=== PATIENT | male | born 1995 | race Asian ===

== ENCOUNTER 2019-06-01 18:29 | Emergency (ER) | payer BC ==
[2019-06-01 18:55] VITALS: BP 102/57
--- NOTE | 2019-06-01 19:35 | UC ---
Skin Complaint HPI - HPI Summary HPI Summary: Patient is a 23yo male presenting with left middle finger redness and pain x1 week. Patient states he cut his finger with a knife while cutting food. After he cut it, he washed it at home and thought it would heal on its own. He notes that afte he cut his finger, he went fishing and did not cover the wound. He does not know when his last tetanus booster was and would like one today. Patient describes the pain as 2/10. Touching the finger makes the pain worse. He does not believe there is a foreign body in the wound. He denies fever, chills, muscle aches, n/v/d. - History of Current Complaint Chief Complaint: UCSkin Time Seen by Provider: 06/01/19 19:11 Stated Complaint: WOUND RECHECK Hx Obtained From: Patient Onset/Duration: Gradual Onset Timing: Constant Onset Severity: Mild Current Severity: Mild Pain Intensity: 2 Pain Scale Used: 0-10 Numeric Location: Discrete, Other - left middle finger distal phalanx - Allergy/Home Medications Allergies/Adverse Reactions: Allergies Allergy/AdvReac Type Severity Reaction Status Date / Time No Known Allergies Allergy Verified 06/01/19 18:51 PMH/Surg Hx/FS Hx/Imm Hx - Surgical History Surgical History: None - Family History Known Family History: Positive: Diabetes, Non-Contributory - Social History Alcohol Use: Occasionally Substance Use Type: None Smoking Status (MU): Never Smoked Tobacco Review of Systems All Other Systems Reviewed And Are Negative: No Constitutional: Positive: Negative. Negative: Fever, Chills, Fatigue Skin: Positive: Other - redness of left middle distal phalanx Gastrointestinal: Negative: Abdominal Pain, Vomiting, Diarrhea, Nausea Motor: Negative: Decreased ROM Neurovascular: Negative: Decreased Sensation, Decreased Pulses Musculoskeletal: Positive: Edema - patient complains of mild swelling. Negative : Decreased ROM Neurological: Negative: Paresthesia, Numbness Physical Exam Triage Information Reviewed: Yes Appearance: Well-Appearing, No Pain Distress, Well-Nourished Vital Signs: Initial Vital Signs Temp 99.0 F 06/01/19 18:52 Pulse 66 06/01/19 18:52 Resp 18 06/01/19 18:52 BP 102/57 06/01/19 18:52 Pulse Ox 99 06/01/19 18:52 Vital Signs Reviewed: Yes Cardiovascular: Positive: Pulses Normal, Brisk Capillary Refill Musculoskeletal: Positive: Strength Intact, ROM Intact, Edema @ - minimal edema of distal phalanx of left middle finger, Other: - tenderness to palpation of tip of left middle finger Neurological: Positive: Other: - sensation of left middle finger intact Skin: Positive: Other - small pustule approximately 0.5cm surrounded by mild erythema noted on palmar surface of left middle distal phalanx. small amount of pus expressed when pressure was applied to finger. did not continue to pus or bleed. Course/Dx - Course Course Of Treatment: Discussed with patient that he is to take keflex as directed for treatment of cellulitis. Patient agreed to tetanus booster as well. Patient instructed to keep finger clean and dry. He may take OTC pain medication as directed for relief of pain. He was instructed to return or go to the emergency room if symptoms persist or worsen. Patient voiced understanding and agreed to treatment plan. - Diagnoses Provider Diagnosis: Cellulitis and abscess of finger, unspecified Discharge ED - Sign-Out/Discharge Documenting (check all that apply): Patient Departure All imaging exams completed and their final reports reviewed: No Studies - Discharge Plan Condition: Stable Disposition: HOME Prescriptions: Cephalexin CAP* [Keflex CAP*] 500 mg PO TID 7 Days #21 cap Patient Education Materials: Cellulitis (ED) Referrals: No Primary Care Phys,NOPCP [Primary Care Provider] - Additional Instructions: Take keflex as directed for treatment of the skin infection on your finger. Keep finger clean and dry. You may take over the counter pain medication as directed for relief of pain. Return or go to the emergency room if symptoms persist or worsen. - Billing Disposition and Condition Condition: STABLE Disposition: Home
[2019-06-01] MEDS ORDERED: Tetan/Diph/Pertus SYR(Tdap)* 0.5 ML SYR(BOOSTRIX) use SYR IM ONE (19:41)
== END 2019-06-01 20:03 | disposition home or self-care (01) ==
LOC: UCEAST 18:29
DX: L03.011 Cellulitis of right finger (principal); Z23 Encounter for immunization
CPT/HCPCS: 90471; 90715; 99212; G0463